=== PATIENT | female | born 1955 | race Caucasian/White ===

== ENCOUNTER 2019-01-16 12:40 | Emergency (ER) | payer MEDICARE, BC ==
--- NOTE | 2019-01-16 13:52 | UC ---
Skin Complaint HPI - HPI Summary HPI Summary: 63 y/o female presents to the urgent care c/o tick bite in her left buttock she noticed this morning. Her tried to remove it, but he thinks some parts still present. Pt states hx of tick bites in the past and has gotten prophylactic treatment. Pt states mild pain 4/10 at touch. Pt states she took her dog out for a walk the night before. Thus, she thinks tick has been there probably 12 hrs. Pt denies fever, MILNER, joint pain, SOB, chest pain, abdominal pain, N/v/d. - History of Current Complaint Time Seen by Provider: 01/16/19 13:51 Stated Complaint: TICK Hx Obtained From: Patient ?: No - Menopausal Onset/Duration: Sudden Onset, Lasting Hours - 12 hrs, Still Present Skin Exposure Onset/Duration: Hours Ago - 12 hrs Timing: Constant Onset Severity: Mild Current Severity: Mild Pain Intensity: 4 - at touch Pain Scale Used: 0-10 Numeric Location: Discrete - left buttocks tick bite Character: Swelling, Redness Aggravating Factor(s): Touch Alleviating Factor(s): Other - tick removal Associated Signs & Symptoms: Positive: Rash - tick bite on left buttocks, Tenderness. Negative: Fever, Chills, Drainage Related History: Possible Reaction to: Insect - Allergy/Home Medications Allergies/Adverse Reactions: Allergies Allergy/AdvReac Type Severity Reaction Status Date / Time No Known Allergies Allergy Verified 01/16/19 13:50 Home Medications: Home Medications Blood Pressure Med 1 tab DAILY 01/16/19 [History Confirmed 01/16/19] Hydrochlorothiazide TAB* [Hydrodiuril TAB*] 1 tab DAILY 01/16/19 [History Confirmed 01/16/19] Simvastatin [Zocor 5 MG-] 1 tab DAILY 01/16/19 [History Confirmed 01/16/19] PMH/Surg Hx/FS Hx/Imm Hx Previously Healthy: Yes Endocrine History: Dyslipidemia Cardiovascular History: Hypertension - Family History Known Family History: Positive: Hypertension - Social History Occupation: Retired Lives: With Family Review of Systems All Other Systems Reviewed And Are Negative: Yes Constitutional: Positive: Negative Skin: Positive: Other - left buttocks w/ tick bite Eyes: Positive: Negative ENT: Positive: Negative Respiratory: Positive: Negative Cardiovascular: Positive: Negative Gastrointestinal: Positive: Negative Genitourinary: Positive: Negative Motor: Positive: Negative Neurovascular: Positive: Negative Musculoskeletal: Positive: Negative Neurological: Positive: Negative Psychological: Positive: Negative Is Patient Immunocompromised?: No Physical Exam - Summary Physical Exam Summary: Vital Signs Reviewed: Yes General: well developed, well nourished female sitting in the examining table w/ o any apparent distress. Eyes: Positive: Conjunctiva Clear - PERRLA, EOMI ENT: Positive: Normal ENT inspection, Hearing grossly normal, Pharynx normal, TMs normal Neck: Positive: Supple, Nontender, No Lymphadenopathy Respiratory: Positive: Chest nontender, Lungs clear, Normal breath sounds Cardiovascular: Positive: RRR, No Murmur, Pulses Normal Abdomen Description: Positive: Nontender, No Organomegaly, Soft. Negative: CVA Tenderness (R), CVA Tenderness (L) Bowel Sounds: Positive: Present Musculoskeletal: Positive: Strength Intact, ROM Intact, No Edema Neurological Exam: Normal Psychological Exam: Normal Skin: Positive: rashes - left upper buttock near the midline w/ tick bite with surrounding erythema, non tender to palpation. some tick remnants still present present, mild swelling or drainage observed. Triage Information Reviewed: Yes Course/Dx - Course Course Of Treatment: 63 y/o female presents to the urgent care c/o tick bite in her left buttock she noticed this morning. Her tried to remove it, but he thinks some parts still present. Pt states hx of tick bites in the past and has gotten prophylactic treatment. Pt states mild pain 4/10 at touch. Pt states she took her dog out for a walk the night before. Thus, she thinks tick has been there probably 12 hrs. Pt denies fever, MILNER, joint pain, SOB, chest pain, abdominal pain, N/v/d. Hx obtained. Pt w/ left upper gluteus w/ tick bite and still some tick remnants presents. Tick remnants removed w/ 30G needle and the skin cleaned w/ alcohol swabs and triple antibiotic applied. Pt tolerated well procedure. Antibiotic prophylaxis with Doxycycline given to the patient to prevent Lyme Disease.. Pt tolerated well medication. Pt advised to observe the area for the development or Erythema Migrans for up to 30 days following exposure. Advised if she develops fever or erythema Migrans to return to the clinic or PCP for further treatment .d/C instructions explained. Pt understood and agreed with plan of care. - Differential Diagnoses - Skin Complaint Differential Diagnoses: Abscess, MRSA, Tick Born Illness, Tinea, Other - insect bite, bee sting - Diagnoses Provider Diagnosis: Tick bite of buttock, Uncontrolled hypertension Discharge - Sign-Out/Discharge Documenting (check all that apply): Patient Departure - d/c home All imaging exams completed and their final reports reviewed: No Studies - Discharge Plan Condition: Stable Disposition: HOME Prescriptions: Bacitracin OINTMENT* 1 applic TOPICAL BID #1 tube Patient Education Materials: Tick Bite (ED), Low-Sodium Diet (ED) Referrals: Paloma Malloy MD [Primary Care Provider] - 2 Weeks Deidre KHOURY,Nasir Lino [Medical Doctor] - If Needed Additional Instructions: 1- Please observe the area for the development or Erythema Migrans for upto 30 days following exposure. Components of the tick saliva can cause transient erythema that should not be confused with Erythema Migrans. If you develop the bull's eye rash, fever, joint pains please return to the urgent care or f/u with your PCP for further management. 2-Antibiotic prophylaxis with Doxycycline was given to you today to prevent lyme Disease. Lyme serology can be drawn in 2 weeks with your PCP to r/o Lyme disease since there is probability of negative results at early exposure. 3- apply Bacitracin oint around tick bite to prevent infection. 4-Your BP is elevated today. Please take your BP medications and decrease salt in your diet, monitor BP and if it continues to be elevated please f/u with your PCP for further management. If you develop chest pain, dizziness, visual disturbances, SOB, or severe MILNER please go immediately to the ER for further management - Billing Disposition and Condition Condition: STABLE Disposition: Home
[2019-01-16 13:54] VITALS: BP 173/91
[2019-01-16] MEDS ORDERED: DOXYcycline CAP(*) 100 MG PO ONE (13:59)
== END 2019-01-16 14:30 | disposition home or self-care (01) ==
LOC: UCCORT 12:40
DX: S30.860A Insect bite (nonvenomous) of lower back and pelvis, initial encounter (principal); I10 Essential (primary) hypertension; E78.5 Hyperlipidemia, unspecified; W57.XXXA Bitten or stung by nonvenomous insect and other nonvenomous arthropods, initial encounter; Y92.9 Unspecified place or not applicable
CPT/HCPCS: 99202; A9270-GY; G0463